=== PATIENT | female | born 1935 | race Asian ===

== ENCOUNTER 2021-07-16 17:59 | Emergency (ER) | payer MEDICARE ==
[~2021-07-16] VITALS: Ht 147.3 cm; Wt 62.6 kg
--- NOTE | 2021-07-16 18:07 | NUR ---
BIB [facility] FROM HOME,GLF, FOUND ON THE FLOOR BY AFTER 3 HRS C/O LEFT HIP PAIN. PT TOLERATING R/A WELL. SAFETY PRECAUTIONS IN PLACE.
--- NOTE | 2021-07-16 18:45 | NUR ---
PT TAKEN TO RADIOLOGY VIA [facility]
--- NOTE | 2021-07-16 19:39 | NUR ---
CALLED , VICKIE, AND LEFT A MESSAGE
[2021-07-16] MEDS ORDERED: IBUPROFEN 400 MG TABLET ONE (19:54)
[2021-07-16] MEDS ORDERED: IBUPROFEN 400 MG TABLET PO ONE (20:00)
--- NOTE | 2021-07-16 20:05 | NUR ---
Pt is medically stable for d/c. Patient discharged to home in stable condition. Written and verbal after care instructions given. Patient verbalizes understanding of instruction. pt was picked up by the in stable conditionl.
[2021-07-16 20:10] VITALS: BP 103/39
== END 2021-07-16 20:05 | disposition home or self-care (01) ==
LOC: ER 18:29
DX: S09.8XXA Other specified injuries of head, initial encounter (principal); M25.552 Pain in left hip; R51.9 Headache, unspecified; J45.909 Unspecified asthma, uncomplicated; I10 Essential (primary) hypertension; W18.39XA Other fall on same level, initial encounter; Y93.89 Activity, other specified; Y92.89 Other specified places as the place of occurrence of the external cause; Y99.8 Other external cause status
CPT/HCPCS: 70450-TC; 72125-TC; 73502